=== PATIENT | female | born 1975 | race Caucasian/White ===

== ENCOUNTER 2017-08-26 09:49 | Inpatient (IN) | payer OTHER ==
--- NOTE | 2017-08-21 17:28 | PREOPHP ---
Date of Admission: 08/22/2017 History Of Present Illness: Ms. Alcaraz is a 42-year-old female, 3, para 2-0 -1-2, who has had problems over the last couple of years with some irregular periods. She is status post tubal ligation, diagnostic laparoscopy, and NovaSure endometrial ablation. She has continued to have problems with bleeding that has not been able to be controlled with oral contraceptives or Nuva Ring. Pelvic ultrasound only seems to indicate a small 6 mm leiomyomata, but despite relative normal cy, she has continued to bleed irregularly. Because of this, she will undergo vaginal hysterectomy a nd salpingectomy. Past Medical History: Includes 2 prior vaginal deliveries, 1 spontaneous AB, diagnostic laparoscopy, tubal ligation, and NovaSure endometrial ablation. Medications: She is on no medications on current basis other than the iron supplements and levothyro xine. Allergies: SHE HAS NO KNOWN ALLERGIES OTHER THAN TO SULFA MEDICATIONS. Social History: She does not smoke. Family History: Significant for father with diabetes. Mother with heart disease. Mother with breas t cancer at age 61. Review of Systems: She reports no recent cough, cold, fever, or chills. No recent nausea, vomiting. She denies any natalya ast lumps. She denies any bowel or bladder issues. Physical Examination: General: Reveals a pleasant female, in no apparent distress. Neck: Supple without adenopathy or thyromegaly. Lungs: Clear. Cardiac: Regular rate and rhythm without murmurs. Breasts: Not examined today. Abdomen: Nontender without organosplenomegaly. Pelvic: Normal female external genitalia. Vaginal wall is pink and rugated. Cervix multiparous. B imanual, no abnormalities. Extremities: No cyanosis, clubbing, edema. Plan: The patient will undergo vaginal hysterectomy and salpingectomy. Risks and benefits are discu ssed. She has signed operative permit in my presence. AJ/SANTA Voice ID: [id number]
[2017-08-22 09:34] LABS: Absolute Lymphocytes (CBC) 1.6 K/uL (0.7-4.9); Absolute Monocytes 0.4 K/uL (0.1-1.3); Absolute Neutrophil 2.9 K/uL (1.8-8.0); Basophils % 0.7 % (0-1.3); Eosinophils % 2.6 % (0-4.4); Lymphocytes % 30.9 % (15.3-44.8); MCH 30.6 pg (27.0-35.0); MCV 89.7 fL (80-100); MPV 7.9 fL (7.6-11.3); Monocytes % 7.8 % (3.3-12.3); RBC Red Blood Cell Count 4.68 M/uL (3.86-4.86)
[2017-08-22 10:13] LABS: Urine Appearance CLEAR; Urine Bilirubin NEGATIVE (NEG); Urine Blood NEGATIVE (NEG); Urine Color YELLOW; Urine Glucose NEGATIVE (NEG); Urine Protein NEGATIVE (NEG); Urine Specific Gravity <=1.005 (1.005-1.030); Urine Urobilinogen 0.2 mg/dL (0.2-1.0)
[2017-08-22 10:16] LABS: Urine Microscopic Reflex NO UMIC
[2017-08-26] MEDS ORDERED: Ringers Lactate 1,000 ML IV ONE (10:10)
[2017-08-26] MEDS ORDERED: MIDAZOLAM HCL 2 MG/2 ML INJ ONE (10:28)
[2017-08-26] MEDS ORDERED: ROCURONIUM 50 MG/5 ML VIAL IV ONE (10:28)
[2017-08-26] MEDS ORDERED: PROPOFOL 200 MG/20 ML VIAL IV ONE (10:28)
[2017-08-26] MEDS ORDERED: FENTANYL CITR 250 MCG/5 ML ONE (10:29)
[2017-08-26] MEDS: CEFAZOLIN/SWI 2gm 2 GM/20 ML SYR IV SCH ×2 (10:40→11:14)
[2017-08-26] MEDS ORDERED: ONDANSETRON 4 MG/2 ML VIAL ONE ×2 (10:45→12:48)
[2017-08-26] MEDS ORDERED: LIDOCAINE 2% INJ, MPF 2 ML 2 ML ONE (10:46)
[2017-08-26] MEDS ORDERED: SULFANILAMIDE 15% VAG CREAM VAG ONE (10:53)
[2017-08-26] MEDS ORDERED: LIDOCAINE 1% W/EPI 1:100,000 MDV 50 ML VIAL ONE (11:39)
[2017-08-26] MEDS: Ringers Lactate 1,000 ML IV ONE ×2 (12:00→12:15)
[2017-08-26] MEDS ORDERED: KETOROLAC 30 MG/ML INJ ONE ×2 (12:31→14:43)
[2017-08-26] MEDS ORDERED: GLYCOPYRROLATE 0.2 MG/ML SYR ONE (12:33)
[2017-08-26] MEDS ORDERED: NEOSTIGMINE 1 MG/ML -5 ML SYRINGE ONE (12:34)
--- NOTE | 2017-08-26 12:42 | P.BOP ---
Preoperative diagnosis: Menorrhagia, lieomyomata Postoperative diagnosis: same Primary procedure: Vaginal hysterectomy, right salpingectomy Regulator Mechanic: Chandler Gamboa Specimen: uterus, right tube Anesthesia: General Complications: None Drain(s): Urinary catheter Transferred to: Recovery Room Condition: Good
[2017-08-26] MEDS ORDERED: MORPHINE/NS PCA 50 MG/50 ML PCA.SYRING IV PRN (12:43)
[2017-08-26] MEDS ORDERED: NALOXONE 0.4 MG/ML VIAL IV PRN (12:43)
[2017-08-26] MEDS ORDERED: PROMETHAZINE 25 MG/ML VIAL IV PRN (12:45)
[2017-08-26] MEDS ORDERED: FENTANYL CITR 100 MCG/2 ML ONE (12:46)
[2017-08-26] MEDS ORDERED: MEPERIDINE HCL 50 MG/ML AMP ONE ×2 (12:48→14:28)
[2017-08-26] MEDS ORDERED: PROMETHAZINE 25 MG/ML VIAL ONE (12:48)
[2017-08-26] MEDS ORDERED: PROMETHAZINE 25 MG/ML VIAL IV ONE (12:50)
[2017-08-26] MEDS ORDERED: ONDANSETRON 4 MG/2 ML VIAL IV ONE (12:50)
[2017-08-26] MEDS ORDERED: MEPERIDINE HCL 50 MG/ML AMP IV ONE ×2 (12:51→13:10)
[2017-08-26] MEDS ORDERED: Ringers Lactate 1,000 ML IV SCH (13:00)
[2017-08-26 13:34] VITALS: O2SAT 100
[2017-08-26 14:16] VITALS: BMI 25.6
[2017-08-26] MEDS: KETOROLAC 30 MG/ML INJ IV PRN (14:45)
[2017-08-26] MEDS ORDERED: Oxycodone HCl/Acetaminophen 1 TAB TAB ONE (16:09)
[2017-08-26] MEDS: Oxycodone HCl/Acetaminophen 1 TAB TAB PO PRN ×2 (16:14→20:40)
--- NOTE | 2017-08-26 23:09 | OP ---
Surgeon: Rusty Thomas MD Anesthesiologist: Jose Juan Nguyen CRNA and Dr. Bales. Preoperative Diagnoses: 1. Menorrhagia. 2. Leiomyomata. Procedures: Vaginal hysterectomy, right salpingectomy. Postoperative Diagnoses: 1. Menorrhagia. 2. Leiomyomata. Description Of Procedure: After a satisfactory level of general endotracheal anesthesia was obtained, the patient was prepped and draped in usual fashion in high leg holders for vaginal surgery. The cervix was grasped with single-tooth tenaculum. Then [facility] clamp was injected circumferentially with dilute solution of lidocaine with 1% epinephrine. A circumferential incision was made utilizing blunt dissection. The bladder was dissected away from the anterior peritoneal reflection, which was entered and certain that we were in the peritoneum rather than the bladder. The posterior colpotomy performed. A duckbill speculum was placed. The uterosacral ligaments were clamped, cut, and suture ligated with 0 Vicryl suture as were the cardinal ligaments and the remainder of the lateral supporting tissue and vascular tissue of the uterus. Lala clamps were placed over the utero-ovarian ligaments and vessels, clamped , cut, and doubly suture ligated with a fix suture and a free tie of 0 Vicryl suture. Good hemostasis was noted. The right tube was removed and base suture ligated with 0 Vicryl suture. Because of some difficulty with the right tube, left tube was left in place. Small right hydatid cyst of Morgagni was devitalized with bipolar cautery. The ovarian pedicles were dry. The stay sutures were released. The cuff was closed with pursestring suture of 2-0 Vicryl in the peritoneum. Free needle was used with a suture from the uterosacral and the cardinal ligaments at the lateral margin of the cuff. The cuff was closed with inverted [id number] sutures of 0 Vicryl ensuring incorporation of the posterior vaginal cuff to stop bleeding. Good hemostasis was noted. A Joe catheter was placed and the patient was awakened, extubated , taken to recovery room in satisfactory condition. Technology Applications Engineer Surgeon: Dr. Gamboa. Estimated Blood Loss: Less than 100 cc. She received 2 g of Ancef for antibiotic prophylaxis. AJ/SANTA Voice ID: [id number] Report ID: [id number] [facility]ITAL[facility]
[2017-08-27] MEDS: KETOROLAC 30 MG/ML INJ IV PRN (01:55)
[2017-08-27] MEDS ORDERED: LEVOTHYROXINE SOD 0.125 MG TAB PO SCH (06:00)
[2017-08-27] MEDS: Oxycodone HCl/Acetaminophen 1 TAB TAB PO PRN ×2 (08:45→12:02)
[2017-08-27 11:50] VITALS: BP 116/73; TEMP 96.6
--- NOTE | 2017-08-28 07:08 | DS ---
Date of Discharge: 08/27/2017 Final Hospital Discharge Diagnoses: Menorrhagia, uterine leiomyomata Complications: None. Procedures: Vaginal hysterectomy, right salpingectomy. Hospital Course: The patient is a 42-year-old female, who underwent a vaginal hyst erectomy, right salpingectomy for menorrhagia with uterine leiomyomata. She was dismissed on the postoperative day to be seen back in my office in 2 weeks with the usual postvaginal hysterectomy activity restrictions. Lab work obtained, included an admission hemoglobin and hematocrit of 14.3, 4 2.0. A negative urine test on urinalysis. She was dismissed with prescription for Tylenol No. 3 #15 for pain relief with the usual postoperative instructions. AJ/SANTA Voice ID: [id number] Report ID: [id number]
== END 2017-08-27 12:35 | disposition home or self-care (01) | DRG 743 ==
LOC: OR 09:49 → 2ND-WC 13:45
PROVIDERS: ADMIT Specialist; ATTEND Specialist
PROC: 0UT57ZZ Resection of Right Fallopian Tube, Via Natural or Artificial Opening (ICD-10-PCS; 2017-08-26)
PROC: 0UT97ZZ Resection of Uterus, Via Natural or Artificial Opening (ICD-10-PCS; principal; 2017-08-26 11:00)
DX: N92.0 Excessive and frequent menstruation with regular cycle (principal); D25.9 Leiomyoma of uterus, unspecified
CPT/HCPCS: 36415; 81003; 81025; 85025; 86850; 86900; 86901; 88307; J0690; J2175; J2250; J2405; J2550; J2710; J3010; J3490

== ENCOUNTER 2017-11-25 09:07 | Observation (INO) | payer OTHER ==
--- OUTSIDE RECORDS SUMMARY | 2017-11-25 09:24 | XMS REPORT ---
:1975 Author Organization [employer] Care Team Providers Name Role Phone Chalo Javier Provider Role Unavailable Allergies, Adverse Reactions, Alerts Substance Reaction Event Type Sulfa Info Not Available Drug Allergy Problems Problem Type Condition Code Onset Dates Condition Status Assessment Pain, joint, knee, right M25.561 Active Problem Acute pain of right knee M25.561 Active Assessment Trochanteric bursitis of right hip M70.61 Active Assessment Sprain of other ligament of right S83.8X1A Active knee, initial encounter Assessment Iliotibial band syndrome of right M76.31 Active side Medications Medication Code Code Instructions Start End Status Dosage System Date Date Medrol [facility] 77094216014 4 MG Orally as October 19, Active as directed 2017 directed Ibuprofen ND 0 Active not defined Naprosyn ND 00802899841 500 MG Orally October 19September Active 1 tablet every 12 hrs 2017 29, with food 2018 or milk as needed Levothyroxine [facility] [address]-81 Active not Sodium defined Results No Known Results Summary Purpose eClinicalWorks Submission
[2017-11-25] MEDS ORDERED: NA CHLORIDE 0.9% 1,000 ML ONE (09:33)
[2017-11-25] MEDS ORDERED: ONDANSETRON 4 MG/2 ML VIAL ONE ×4 (09:34→17:06)
[2017-11-25 10:04] LABS: Urine Blood TRACE (NEG); Urine Glucose NEGATIVE (NEG); Urine Protein NEGATIVE (NEG); Urine Specific Gravity 1.015 (1.005-1.030)
[2017-11-25 10:13] LABS: Urine Bacteria NONE SEEN /HPF (<20); Urine Culture Reflex Order NOT NEEDED; Urine RBC <5 /HPF (NONE SEEN)
[2017-11-25 10:17] LABS: Absolute Lymphocytes (CBC) 1.2 K/uL (0.7-4.9); Absolute Monocytes 0.4 K/uL (0.1-1.3); Absolute Neutrophil 4.5 K/uL (1.8-8.0); Basophils % 0.6 % (0-1.3); Eosinophils % 0.9 % (0-4.4); Lymphocytes % 19.5 % (15.3-44.8); MCH 30.9 pg (27.0-35.0); MCV 89.7 fL (80-100); MPV 7.8 fL (7.6-11.3); Monocytes % 5.8 % (3.3-12.3); RBC Red Blood Cell Count 4.69 M/uL (3.86-4.86)
[2017-11-25 10:19] LABS: ALT/SGPT 18 U/L (12-78); AST/SGOT 14 U/L (15-37); Alkaline Phosphatase 56 U/L (45-117); BUN Blood Urea Nitrogen 14 mg/dL (7-18); Bicarbonate 28 mmol/L (21-32); Bilirubin Direct 0.1 mg/dL (0-0.2); Bilirubin Total 0.4 mg/dL (0.2-1.0); Glucose Level 103 mg/dL (74-106); Lipase 58 U/L (73-393); Potassium 3.6 mmol/L (3.5-5.1); Protein, Total 7.5 g/dL (6.4-8.2); Sodium Level 139 mmol/L (136-145)
--- NOTE | 2017-11-25 11:04 | RAD REPORT ---
EXAM DESCRIPTION: CTAbdomen Pelvis W Contrast - 11/25/2017 10:55 am CLINICAL HISTORY: Abdominal pain. ABD PAIN COMPARISON: Follow Up Breast Axilla Comp dated 11/24/2017 TECHNIQUE: Biphasic CT imaging of the abdomen and pelvis was performed with 100 ml non-ionic IV cont rast. All CT scans are performed using dose optimization technique as appropriate and may include automated exposure control or mA/KV adjustment according to patient size. FINDINGS: The lung bases are clear.Small amount of focal fat stranding in the omental fat is seen me asuring 3 cm in the right upper quadrant, nonspecific. The liver contains a cyst in right lobe measuring 14 mm. No aggressive liver lesion or biliary dilata tion. The spleen, pancreas, adrenal glands and kidneys are within normal limits. No bowel obstruction, free air, free fluid or abscess. Moderate fecal retention in the colon. The jarrett endix is normal. Small fat containing umbilical hernia. No evidence of significant lymphadenopathy. No suspicious bony findings. IMPRESSION: Small 3 cm area of focal fat stranding in the right upper quadrant omental fat noted as detailed. Etiology for this finding is not clear, possibly representing small area of omental infarct .
--- NOTE | 2017-11-25 11:21 | RAD REPORT ---
EXAM DESCRIPTION: US - Abdomen Exam Limited - 11/25/2017 10:58 am CLINICAL HISTORY: RUQ pain COMPARISON: Abdomen Exam Complete dated 11/21/2016 FINDINGS: The gallbladder demonstrates no gallstones. No pericholecystic fluid or gallbladder wall t hickening. The common bile duct is normal measuring 4 mm. The liver demonstrates no findings of intrahepatic biliary dilatation. IMPRESSION: Unremarkable examination.
--- NOTE | 2017-11-25 13:56 | EDPHYS ---
Physician Documentation [facility] Name: Tracy Alcaraz Age: 42 yrs Sex: Female : 1975 Arrival Date: 11/25/2017 Time: 09:09 Bed 20 Private MD: Otto Murrell ED Physician Fidel Arzola HPI: 11/25 18:24 This 42 yrs old Female presents to ER via Ambulatory with complaints of kdr Abdominal Pain, Abdominal Swelling. 18:24 The patient presents with abdominal pain in the right upper quadrant, right lower kdr quadrant, Feels generally bloated since yesterday abdominal distention that is diffuse. Onset: The symptoms/episode began/occurred yesterday. The symptoms do not radiate. Associated signs and symptoms: Pertinent positives: nausea, Pertinent negatives: anorexia, blood in stools, chest pain, constipation, diarrhea, dysuria, fever, headache, hematuria, palpitations, shortness of breath, vaginal discharge, vomiting, vomiting blood. The symptoms are described as achy, constant, crampy, intermittent, vague. Modifying factors: The symptoms are alleviated by remaining still, the symptoms are aggravated by breathing deeply, movement, touching the area, walking. Severity of pain: At its worst the pain was moderate in the emergency department the pain is actually worse mildly. The patient has not experienced similar symptoms in the past. The patient has not recently seen a physician. 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 - Social history:: Smoking status: Patient/guardian denies using tobacco. - Ebola Screening: : Patient negative for fever greater than or equal to 101.5 degrees Fahrenheit, and additional compatible Ebola Virus Disease symptoms Patient denies exposure to infectious person Patient denies travel to an Ebola-affected area in the 21 days before illness onset No symptoms or risks identified at this time. ROS: 18:24 Constitutional: Negative for fever, chills, and weight loss, Eyes: Negative for injury, kdr pain, redness, and discharge, ENT: Negative for injury, pain, and discharge, Neck: Negative for injury, pain, and swelling, Cardiovascular: Negative for chest pain, palpitations, and edema, Respiratory: Negative for shortness of breath, cough, wheezing, and pleuritic chest pain, Back: Negative for injury and pain, : Negative for injury, bleeding, discharge, and swelling, MS/Extremity: Negative for injury and deformity, Skin: Negative for injury, rash, and discoloration, Neuro: Negative for headache, weakness, numbness, tingling, and seizure activity. Psych: Negative for depression, anxiety, suicide ideation, homicidal ideation, and hallucinations, Allergy/Immunology: Negative for hives, rash, and allergies, Endocrine: Negative for neck swelling, polydipsia, polyuria, polyphagia, and marked weight changes, Hematologic/Lymphatic: Negative for swollen nodes, abnormal bleeding, and unusual bruising. 18:24 Abdomen/GI: Positive for abdominal pain, nausea, Negative for diarrhea, constipation, abdominal cramps, abdominal distension, anorexia, dysphagia, hematemesis, black/tarry stool, rectal pain, rectal bleeding. Exam: 18:24 Constitutional: This is a well developed, well nourished patient who is awake, alert, kdr and in no acute distress. Head/Face: Normocephalic, atraumatic. Eyes: Pupils equal round and reactive to light, extra-ocular motions intact. Lids and lashes normal. Conjunctiva and sclera are non-icteric and not injected. Cornea within normal limits. Periorbital areas with no swelling, redness, or edema. Neck: Trachea midline, no thyromegaly or masses palpated, and no cervical lymphadenopathy. Supple, full range of motion without nuchal rigidity, or vertebral point tenderness. No Meningismus. Chest/axilla: Normal chest wall appearance and motion. Nontender with no deformity. No lesions are appreciated. Cardiovascular: Regular rate and rhythm with a normal S1 and S2. No gallops, murmurs, or rubs. Normal PMI, no JVD. No pulse deficits. Respiratory: Lungs have equal breath sounds bilaterally, clear to auscultation and percussion. No rales, rhonchi or wheezes noted. No increased work of breathing, no retractions or nasal flaring. Back: No spinal tenderness. No costovertebral tenderness. Full range of motion. Skin: Warm, dry with normal turgor. Normal color with no rashes, no lesions, and no evidence of cellulitis. MS/ Extremity: Pulses equal, no cyanosis. Neurovascular intact. Full, normal range of motion. Neuro: Awake and alert, GCS 15, oriented to person, place, time, and situation. Cranial nerves II-XII grossly intact. Motor strength 5/5 in all extremities. Sensory grossly intact. Cerebellar exam normal. Normal gait. Psych: Awake, alert, with orientation to person, place and time. Behavior, mood, and affect are within normal limits. 18:24 Abdomen/GI: Inspection: abdomen appears normal, Bowel sounds: active, all quadrants, Palpation: soft, mild abdominal tenderness, in the right upper quadrant, rebound tenderness, is not appreciated. Vital Signs: 09:19 BP 153 / 93; Pulse 115; Resp 16 S; Pulse Ox 100% on R/A; Weight 61.23 kg; Height 5 ft. iw 2 in. (157.48 cm); Pain 7/10; 10:22 BP 112 / 67; Pulse 88; Resp 14 S; Pulse Ox 100% on R/A; jl7 10:26 Temp 98.5(O); jl7 11:28 BP 124 / 72; Pulse 87; Resp 16 S; Pulse Ox 100% on R/A; jl7 12:34 BP 117 / 77; Pulse 87; Resp 16; Pulse Ox 98% ; jl7 14:12 BP 128 / 75; Pulse 83; Resp 15; Pulse Ox 98% on R/A; mh5 16:44 BP 117 / 77; Pulse 90; Resp 16 S; Pulse Ox 100% on R/A; jl7 09:19 Body Mass Index 24.69 (61.23 kg, 157.48 cm) iw MDM: 13:55 Patient medically screened. kdr 18:24 Data reviewed: vital signs, nurses notes, lab test result(s), radiologic studies. kdr Counseling: I had a detailed discussion with the patient and/or guardian regarding: the historical points, exam findings, and any diagnostic results supporting the discharge/admit diagnosis, lab results, radiology results, the need for further work-up and treatment in the hospital. Physician consultation: Graeme Waller MD. Admission orders: after a detailed discussion of the patient's condition and case, the admit orders are written by me. 08/28 09:23 Order name: Basic Metabolic Panel; Complete Time: 10:41 kdr 11/25 09:23 Order name: CBC with Diff; Complete Time: 10:41 kdr 11/25 09:23 Order name: Creatinine for Radiology; Complete Time: 10:41 kdr 11/25 09:23 Order name: Hepatic Function; Complete Time: 10:41 kdr 11/25 09:23 Order name: Lipase; Complete Time: 10:41 kdr 11/25 09:23 Order name: Urine Microscopic Only; Complete Time: 10:41 kdr 11/25 09:51 Order name: Urine Dipstick--Ancillary (enter results); Complete Time: 10:41 bd 11/25 14:02 Order name: Basic Metabolic Panel EDMS 11/25 14:02 Order name: Basic Metabolic Panel EDMS 11/25 14:02 Order name: CBC with Automated Diff EDMS 11/25 14:02 Order name: CBC with Automated Diff EDMS 11/25 14:02 Order name: Lipase EDMS 11/25 14:02 Order name: Lipase EDMS 11/25 14:02 Order name: Liver (Hepatic) Function EDMS 11/25 09:23 Order name: IV Saline Lock; Complete Time: 09:52 kdr 11/25 09:23 Order name: Labs collected and sent; Complete Time: 09:52 kdr 11/25 09:23 Order name: Urine Dipstick-Ancillary (obtain specimen); Complete Time: 09:52 kdr 11/25 09:23 Order name: CT Abd/Pelvis - W/Contrast; Complete Time: 11:13 kdr 11/25 10:43 Order name: US Abdomen Limited; Complete Time: 11:27 kdr 11/25 14:02 Order name: NPO EDMS 11/25 14:02 Order name: Liver (Hepatic) Function EDMS Administered Medications: 09:46 Drug: NS 0.9% 1000 ml Route: IV; Rate: 1 bolus; Site: right antecubital; jl7 10:27 Follow up: IV Status: Completed infusion jl7 09:48 Drug: Zofran 4 mg Route: IVP; Site: right antecubital; jl7 10:15 Follow up: Response: No adverse reaction; Nausea is decreased jl7 11:28 Drug: Zofran 4 mg Route: IVP; Site: right antecubital; jl7 12:00 Follow up: Response: No adverse reaction; Nausea is decreased jl7 14:30 Drug: morphine 2 mg Route: IVP; Site: right antecubital; jl7 15:00 Follow up: Response: No adverse reaction; Pain is decreased jl7 14:35 Drug: Zosyn 3.375 grams Route: IVPB; Infused Over: 60 mins; Site: right antecubital; jl7 15:35 Follow up: Response: No adverse reaction; IV Status: Completed infusion jl7 15:07 Drug: Flagyl 500 mg Volume: 100 ml; Route: IVPB; Rate: 200 ml/hr; Infused Over: 30 jl7 mins; Site: right antecubital; 15:37 Follow up: Response: No adverse reaction; IV Status: Completed infusion jl7 Disposition: 11/25/17 13:55 Hospitalization ordered by Graeme Waller for Observation. Preliminary diagnosis are Abdominal and pelvic pain, Omental Infart. - Bed requested for Telemetry/MedSurg (observation). - Status is Observation. jl7 - Condition is Fair. - Problem is new. - Symptoms have improved. UTI on Admission? No Signatures: Dispatcher [employer] EDMS Fidel Arzola MD MD kdr Estela Bergman RN RN iw Ingrid Lombardi RN RN jl7 Jodie Winter RN RN df Corrections: (The following items were deleted from the chart) 17:24 13:55 Hospitalization Ordered by Graeme Waller MD for Observation. Preliminary df diagnosis is Abdominal and pelvic pain; Omental Infart. Bed requested for Telemetry/MedSurg (observation). Status is Observation. Condition is Fair. Problem is new. Symptoms have improved. UTI on Admission? No. kdr 18:01 17:24 11/25/2017 13:55 Hospitalization Ordered by Graeme Waller MD for Observation. jl7 Preliminary diagnosis is Abdominal and pelvic pain; Omental Infart. Bed requested for Telemetry/MedSurg (observation). Status is Observation. Condition is Fair. Problem is new. Symptoms have improved. UTI on Admission? No. df
--- NOTE | 2017-11-25 13:56 | ER ---
Nurse's Notes [facility] Name: Tracy Alcaraz Age: 42 yrs Sex: Female : 1975 Arrival Date: 11/25/2017 Time: 09:09 Bed 20 Private MD: Otto Murrell Diagnosis: Abdominal and pelvic pain;Omental Infart Presentation: 11/25 09:17 Presenting complaint: Patient states: RUQ pain radiating to RLQ and bloating, started iw yesterday, worse when taking a deep breath, denies vomiting or diarrhea but does feel very nauseous, pain is constant /10. Transition of care: patient was not received from another setting of care. Onset of symptoms was November 24, 2017. Risk Assessment: Do you want to hurt yourself or someone else? Patient reports no desire to harm self or others. Initial Sepsis Screen: Does the patient meet any 2 criteria? No. Patient's initial sepsis screen is negative. Does the patient have a suspected source of infection? No. Patient's initial sepsis screen is negative. Care prior to arrival: None. 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 - Social history:: Smoking status: Patient/guardian denies using tobacco. - Ebola Screening: : Patient negative for fever greater than or equal to 101.5 degrees Fahrenheit, and additional compatible Ebola Virus Disease symptoms Patient denies exposure to infectious person Patient denies travel to an Ebola-affected area in the 21 days before illness onset No symptoms or risks identified at this time. Screenin:24 Abuse screen: Denies threats or abuse. Denies injuries from another. Nutritional jl7 screening: No deficits noted. Tuberculosis screening: No symptoms or risk factors identified. Fall Risk IV access (20 points). Total Wake[place] Fall Scale indicates No Risk (0-24 pts). Assessment: 09:30 General: Appears in no apparent distress. uncomfortable, Behavior is calm, cooperative, jl7 appropriate for age. Pain: Complains of pain in right upper quadrant Pain currently is 7 out of 10 on a pain scale. Neuro: Level of Consciousness is awake, alert, obeys commands, Oriented to person, place, time, situation. Cardiovascular: Patient's skin is warm and dry. Respiratory: Airway is patent Respiratory effort is even, unlabored, Respiratory pattern is regular, symmetrical. GI: Abdomen is non-distended, Stools are reported to be normal. Last BM was November 25, 2017. Bowel sounds present X 4 quads. Abd is soft Abdomen is tender to palpation in right upper quadrant Reports nausea, Patient currently denies diarrhea, vomiting. : No signs and/or symptoms were reported regarding the genitourinary system. Denies burning with urination, inability to void, urinary frequency. EENT: No signs and/or symptoms were reported regarding the EENT system. Derm: Skin is pink, warm \T\ dry. Musculoskeletal: No signs and/or symptoms reported regarding the musculoskeletal system. 10:25 Reassessment: Patient appears in no apparent distress at this time. Patient and/or jl7 family updated on plan of care and expected duration. Pain level reassessed. Patient is alert, oriented x 3, equal unlabored respirations, skin warm/dry/pink. 11:28 Reassessment: Patient and/or family updated on plan of care and expected duration. Pain jl7 level reassessed. Patient is alert, oriented x 3, equal unlabored respirations, skin warm/dry/pink. 12:39 Reassessment: Patient appears in no apparent distress at this time. Patient and/or jl7 family updated on plan of care and expected duration. Pain level reassessed. Patient is alert, oriented x 3, equal unlabored respirations, skin warm/dry/pink. 13:30 Reassessment: Patient and/or family updated on plan of care and expected duration. Pain jl7 level reassessed. Patient is alert, oriented x 3, equal unlabored respirations, skin warm/dry/pink. 14:30 Reassessment: Patient and/or family updated on plan of care and expected duration. Pain jl7 level reassessed. Patient is alert, oriented x 3, equal unlabored respirations, skin warm/dry/pink. 15:30 Reassessment: No changes from previously documented assessment. Patient and/or family jl7 updated on plan of care and expected duration. Pain level reassessed. Patient is alert, oriented x 3, equal unlabored respirations, skin warm/dry/pink. 16:30 Reassessment: Patient and/or family updated on plan of care and expected duration. Pain jl7 level reassessed. Patient is alert, oriented x 3, equal unlabored respirations, skin warm/dry/pink. Vital Signs: 09:19 BP 153 / 93; Pulse 115; Resp 16 S; Pulse Ox 100% on R/A; Weight 61.23 kg; Height 5 ft. iw 2 in. (157.48 cm); Pain 7/10; 10:22 BP 112 / 67; Pulse 88; Resp 14 S; Pulse Ox 100% on R/A; jl7 10:26 Temp 98.5(O); jl7 11:28 BP 124 / 72; Pulse 87; Resp 16 S; Pulse Ox 100% on R/A; jl7 12:34 BP 117 / 77; Pulse 87; Resp 16; Pulse Ox 98% ; jl7 14:12 BP 128 / 75; Pulse 83; Resp 15; Pulse Ox 98% on R/A; mh5 16:44 BP 117 / 77; Pulse 90; Resp 16 S; Pulse Ox 100% on R/A; jl7 09:19 Body Mass Index 24.69 (61.23 kg, 157.48 cm) iw ED Course: 09:09 Patient arrived in ED. rg4 09:09 Otto Murrell MD is Private Physician. rg4 09:19 Triage completed. iw 09:19 Arm band placed on. iw 09:23 Fidel Arzola MD is Attending Physician. kdr 09:24 Ingrid Lombardi RN is Primary Nurse. jl7 09:53 Initial lab(s) drawn, by ks, sent to lab. Urine collected: clean catch specimen, clear. jl7 Inserted saline lock: 20 gauge in right antecubital area, using aseptic technique. Blood collected. 10:24 Patient has correct armband on for positive identification. Bed in low position. Call jl7 light in reach. Side rails up X 1. Pulse ox on. NIBP on. Warm blanket given. 10:54 CT completed. Patient tolerated procedure well. Patient moved to CT via wheelchair. jg6 Patient taken to ultrasound. via wheelchair. 10:55 CT Abd/Pelvis - W/Contrast In Process Unspecified. EDMS 10:56 US Abdomen Limited In Process Unspecified. EDMS 13:53 Graeme Waller MD is Hospitalizing Provider. kdr 17:56 No provider procedures requiring assistance completed. Patient admitted, IV remains in jl7 place. intact, No redness/swelling at site. Administered Medications: 09:46 Drug: NS 0.9% 1000 ml Route: IV; Rate: 1 bolus; Site: right antecubital; jl7 10:27 Follow up: IV Status: Completed infusion jl7 09:48 Drug: Zofran 4 mg Route: IVP; Site: right antecubital; jl7 10:15 Follow up: Response: No adverse reaction; Nausea is decreased jl7 11:28 Drug: Zofran 4 mg Route: IVP; Site: right antecubital; jl7 12:00 Follow up: Response: No adverse reaction; Nausea is decreased jl7 14:30 Drug: morphine 2 mg Route: IVP; Site: right antecubital; jl7 15:00 Follow up: Response: No adverse reaction; Pain is decreased jl7 14:35 Drug: Zosyn 3.375 grams Route: IVPB; Infused Over: 60 mins; Site: right antecubital; jl7 15:35 Follow up: Response: No adverse reaction; IV Status: Completed infusion jl7 15:07 Drug: Flagyl 500 mg Volume: 100 ml; Route: IVPB; Rate: 200 ml/hr; Infused Over: 30 jl7 mins; Site: right antecubital; 15:37 Follow up: Response: No adverse reaction; IV Status: Completed infusion jl7 Outcome: 13:55 Decision to Hospitalize by Provider. kdr 17:56 Admitted to Med/surg accompanied by tech, via wheelchair, room 207, with chart, Report jl7 called to ERLIN Burdick 17:56 Condition: stable 17:56 Discharge instructions given to patient, Instructed on the need for admit, Demonstrated understanding of instructions. 18:01 Patient left the ED. jl7 Signatures: Dispatcher [employer] EDMS Fidel Arzola MD MD kdr Williams, Irene, RN RN iw Garcia, Rubi 4 [facility] Ingrid Lombardi RN RN jl7 Eulalia Claire jg6
[2017-11-25] MEDS ORDERED: ACETAMINOPHEN 500 MG TAB PO PRN (13:58)
[2017-11-25] MEDS ORDERED: MORPHINE 4 MG/ML SYR ONE (14:11)
[2017-11-25] MEDS ORDERED: PIPER/TAZO/NS 3.375gm 3.375 GM/100 ML BAG ONE (14:12)
[2017-11-25] MEDS ORDERED: D5 0.45 NS 1,000 ML IV ONE (17:06)
[2017-11-25] MEDS: ONDANSETRON 4 MG/2 ML VIAL IV PRN ×2 (17:06→21:34)
[2017-11-25] MEDS: D5 0.45 NS 1,000 ML IV SCH ×2 (17:07→23:18)
[2017-11-25] MEDS ORDERED: METRONIDAZOLE 500mg IVPB 500 MG/100 ML BAG IV SCH (18:00)
[2017-11-25] MEDS ORDERED: PIPER/TAZO/NS 3.375gm 3.375 GM/100 ML BAG IVPB SCH (18:00)
[2017-11-25 18:46] VITALS: BMI 24.7
[2017-11-25] MEDS: METRONIDAZOLE 500mg IVPB 500 MG/100 ML BAG IV SCH (23:17)
[2017-11-26] MEDS: PIPER/TAZO/NS 3.375gm 3.375 GM/100 ML BAG IVPB SCH ×2 (00:47→10:03)
[2017-11-26 02:24] VITALS: O2SAT 6
[2017-11-26 05:43] LABS: Absolute Lymphocytes (CBC) 1.8 K/uL (0.7-4.9); Absolute Monocytes 0.5 K/uL (0.1-1.3); Absolute Neutrophil 4.6 K/uL (1.8-8.0); Basophils % 0.4 % (0-1.3); Eosinophils % 1.7 % (0-4.4); Hematocrit 42.3 % (36.0-45.0); Lymphocytes % 25.8 % (15.3-44.8); MCH 31.1 pg (27.0-35.0); MCV 91.3 fL (80-100); MPV 7.7 fL (7.6-11.3); Monocytes % 7.6 % (3.3-12.3); RBC Red Blood Cell Count 4.63 M/uL (3.86-4.86)
[2017-11-26 05:51] LABS: Albumin 3.7 g/dL (3.4-5.0); Bilirubin Direct 0.1 mg/dL (0-0.2); Bilirubin Total 0.7 mg/dL (0.2-1.0); Potassium 3.9 mmol/L (3.5-5.1); Protein, Total 7.3 g/dL (6.4-8.2)
[2017-11-26] MEDS: D5 0.45 NS 1,000 ML IV SCH ×2 (06:00→16:42)
[2017-11-26] MEDS: ONDANSETRON 4 MG/2 ML VIAL IV PRN (06:21)
[2017-11-26] MEDS: METRONIDAZOLE 500mg IVPB 500 MG/100 ML BAG IV SCH (06:24)
[2017-11-26] MEDS ORDERED: MORPHINE 2 MG/ML SYR IV PRN (09:40)
[2017-11-26] MEDS: PROMETHAZINE 25 MG/ML VIAL IV PRN ×2 (10:03→16:45)
[2017-11-26] MEDS: HYDROCODONE/APAP 7.5/325 MG TAB PO PRN ×2 (10:30→16:43)
[2017-11-26] MEDS: CEFOXITIN/SWI 1gm 1 GM/10 ML SYR IV SCH ×2 (12:57→17:19)
[2017-11-26 18:43] VITALS: BP 115/72; TEMP 98.9
--- NOTE | 2017-11-26 19:04 | P.DS ---
Admission Date: 11/25/17 Discharge Date: 11/26/17 Disposition: ROUTINE DISCHARGE Discharge Condition: GOOD Vital Signs/Physical Exam: Temp Pulse Resp BP Pulse Ox 98.9 F 100 H 16 115/72 99 11/26/17 16:00 11/26/17 16:00 11/26/17 16:00 11/26/17 16:00 11/26/17 16:00 General: Alert, In no apparent distress, Oriented x3 HEENT: PERRLA, EOMI Neck: Supple Respiratory: Normal air movement Cardiovascular: No edema Gastrointestinal: Soft and benign, No rebound, No guarding, Tenderness (mild epigastric better than yesterday) Laboratory Data at Discharge: WBC 7.1 K/uL (4.3-10.9) D 11/26/17 04:58 Hgb 14.4 g/dL (12.0-15.0) 11/26/17 04:58 Hct 42.3 % (36.0-45.0) 11/26/17 04:58 Plt Count 254 K/uL (152-406) 11/26/17 04:58 Sodium 141 mmol/L (136-145) 11/26/17 04:58 Potassium 3.9 mmol/L (3.5-5.1) 11/26/17 04:58 BUN 8 mg/dL (7-18) 11/26/17 04:58 Creatinine 0.90 mg/dL (0.55-1.3) 11/26/17 04:58 Glucose 114 mg/dL (74-106) H 11/26/17 04:58 Total Bilirubin 0.7 mg/dL (0.2-1.0) 11/26/17 04:58 AST 14 U/L (15-37) L 11/26/17 04:58 ALT 16 U/L (12-78) 11/26/17 04:58 Alkaline Phosphatase 60 U/L (45-117) 11/26/17 04:58 Lipase 51 U/L (73-393) L 11/26/17 04:58 Home Medications: Levothyroxine [Synthroid*] 125 mcg PO [id number] 02/28/16 Ciprofloxacin HCl [Cipro 500 MG Tablet] 500 mg PO BID #12 tab 11/26/17 Codeine/APAP [Tylenol W/Codeine #3 tab] 1 tab PO Q6HP PRN #20 tab 11/26/17 Pantoprazole [Protonix Tab] 40 mg PO DAILY #7 tab 11/26/17 New Medications: Ciprofloxacin HCl [Cipro 500 MG Tablet] 500 mg PO BID #12 tab Codeine/APAP [Tylenol W/Codeine #3 tab] 1 tab PO Q6HP PRN #20 tab PRN Reason: Pain Pantoprazole [Protonix Tab] 40 mg PO DAILY #7 tab Diet: AHA Activity: Ad arash Followup: Graeme Waller MD [ACTIVE - CAN ADMIT] - 1 Week
--- NOTE | 2017-11-27 05:16 | HP ---
Date of Admission: 11/25/2017 Reason For Service: Epigastric pain. History Of Present Illness: This is the case of a 42-year-old patient, comes to us with epigastric p ain. Came to the ER. Started a day before. Does not radiate anywhere other than epigastric area. Etiology of that is unknown. She does not recall any trauma, any dysuria, hematuria, hematochezia, m lilliam. Denies eating anything out of the usual. Denies any family member sick at home. The patient initially was seen and thinking that may have gallbladder disease, but during the workup, patient fo und to have omental infarction as differential diagnosis. The patient came with intractable abdomina l pain. So she was admitted. Past Surgical History: Include hysterectomy. Medical History: Hypothyroidism. Medications: Levothyroxine. Allergies: SULFA. Social History: She does smoke. She does not drink alcohol. Review of Systems: Constitutional: Denies any fever, chills. Respiratory: Denies any shortness of breath, any chest pain. Gastrointestinal: The patient states nausea, but no vomiting, no dysuria, no melena, no hematochezia . Review of Systems: Ten points review of system otherwise unremarkable. Physical Examination: General: The patient is awake, alert. HEENT: Pupils equal and reactive, anicteric. Neck: Supple. Chest: Clear. Abdomen: Epigastric tenderness with guarding, no rebound. Breasts: Deferred. Pelvic: Deferred. Rectal: Deferred. Extremities: Good capillary refill. Neuro: Cranial nerves 2 through 12 grossly within normal limits. Laboratory Data: Blood work shows WBC count of 6.2 with hemoglobin of 14.5, platelets of 249, neutro phils 73.2. Sodium is 139, creatinine is 0.7, lipase is 58, AST 14, ALT 18, total bilirubin 0.4. UA and nitrite negative. Imaging: CAT scan of the abdomen and pelvis interpreted by Dr. Vasquez as small 3 cm area of focal fat stranding in the right upper quadrant omental fat, possible representing omental infarct. The patien t has a small liver cyst about 14 mm. No aggressive lesions seen in the liver and patient also have umbilical hernia. Abdominal ultrasound interpreted by Dr. Vasquez as unremarkable. Assessment: This is a 42-year-old patient with intractable abdominal pain, omental infarction as the differential diagnosis. The patient will be admitted to observation, serial abdominal examination. The patient understand the options of diagnostic laparoscopy, with benefits, alternatives, and risks including, but not limited to infection, bleeding, damage to adjacent structures, anesthesia complic ations, negative exploration, myocardial infarction, even . She also understands this might not relieve any symptoms. She may need more than 1 surgical intervention. She would prefer conservativ e treatment at this moment. We are going to check once again tomorrow morning see how she is doing a nd we can control her pain and clinically if she improved, she may start some diet and see how she go es on the day. If she get worse, then she will allow me to do diagnostic lap. JORGE Voice ID: [id number]
== END 2017-11-26 18:47 | disposition home or self-care (01) ==
LOC: ER 09:07 → ERHOLD 13:57 → 2ND 17:57
PROVIDERS: ADMIT Surgery; ATTEND Surgery
DX: R10.13 Epigastric pain (principal); E03.9 Hypothyroidism, unspecified; Z88.2 Allergy status to sulfonamides
CPT/HCPCS: 36415; 74177; 76705; 80048; 80076; 81003; 81015; 83690; 85025; 96361; 96365; 96368; 96375; 99285; G0378; J2405; J2543; J2550; J7030; Q9967

== ENCOUNTER 2017-12-10 08:31 | Day surgery (SDC) | payer OTHER ==
--- OUTSIDE RECORDS SUMMARY | 2017-12-10 08:33 | XMS REPORT ---
[...] End Status Dosage System Date Date Medrol [facility] 54381778127 4 MG Orally as October 19, Active as directed 2017 directed Ibuprofen ND 0 Active not defined Naprosyn ND 11136285655 500 MG Orally October 19September Active 1 tablet every 12 hrs 2017 29, with food 2018 or milk as needed Levothyroxine [facility] [address]-34 Active not Sodium defined Results No Known Results Summary Purpose eClinicalWorks Submission
--- NOTE | 2017-12-10 08:47 | RAD REPORT ---
EXAM DESCRIPTION: RAD - Chest Pa And Lat (2 Views) - 12/10/2017 8:24 am CLINICAL HISTORY: preop Chest pain. COMPARISON: Chest Pa And Lat (2 Views) dated 06/30/2016; Chest Pa And Lat (2 Views) dated 03/27/2016; Chest Single View dated 03/01/2016; Chest Single View dated 02/27/2016 FINDINGS: The lungs are clear. The heart is normal in size. No displaced fractures. IMPRESSION: No acute or concerning finding suspected.
[2017-12-10 08:48] LABS: Absolute Lymphocytes (CBC) 1.4 K/uL (0.7-4.9); Absolute Monocytes 0.5 K/uL (0.1-1.3); Absolute Neutrophil 3.9 K/uL (1.8-8.0); Basophils % 0.5 % (0-1.3); Eosinophils % 0.9 % (0-4.4); Lymphocytes % 23.6 % (15.3-44.8); MCH 30.8 pg (27.0-35.0); MPV 8.4 fL (7.6-11.3); Monocytes % 8.2 % (3.3-12.3); RBC Red Blood Cell Count 4.89 M/uL (3.86-4.86)
[2017-12-10] MEDS ORDERED: Ringers Lactate 1,000 ML IV ONE ×2 (08:50→11:59)
[2017-12-10] MEDS ORDERED: CEFAZOLIN/SWI 1gm 1 GM/10 ML SYR ONE (08:50)
[2017-12-10 08:51] LABS: Potassium 4.2 mmol/L (3.5-5.1)
[2017-12-10] MEDS ORDERED: MIDAZOLAM HCL 2 MG/2 ML INJ ONE (09:14)
[2017-12-10] MEDS ORDERED: PROPOFOL 200 MG/20 ML VIAL IV ONE (09:14)
[2017-12-10] MEDS ORDERED: GLYCOPYRROLATE 0.2 MG/ML SYR ONE ×2 (09:14)
[2017-12-10] MEDS ORDERED: FENTANYL CITR 250 MCG/5 ML ONE (09:15)
[2017-12-10] MEDS ORDERED: LIDOCAINE 2% MPF 5 ML VIAL ONE (09:15)
[2017-12-10] MEDS ORDERED: ROCURONIUM 50 MG/5 ML VIAL IV ONE (09:18)
[2017-12-10] MEDS ORDERED: SCOPOLAMINE HYDROBROMIDE PATCH TD ONE (09:23)
[2017-12-10] MEDS ORDERED: BUPIVACAINE 0.5% PF 10 ML VIAL ONE (09:30)
--- NOTE | 2017-12-10 11:02 | P.BOP ---
Preoperative diagnosis: intractable epigastric pain, omental mass (possible infarction, umbilical h Postoperative diagnosis: same, omental inflammarory mass (possible infarction), hernia, appendicitis Primary procedure: 1. Diagnostic laparoscopy, 2. Partial omentectomy, 3. appendectomy Secondary procedure: 4. open repair of incarcerated umbilical hernia Block Sealer: Mai Mcintosh) Estimated blood loss: <10cc Specimen: jarrett, omental mass(possible infarcted omentum), hernia sac Findings: see dictation Anesthesia: General Complications: None Transferred to: Recovery Room Condition: Good
[2017-12-10] MEDS: MEPERIDINE HCL 50 MG/ML AMP ONE ×2 (11:30→11:55)
[2017-12-10] MEDS ORDERED: ONDANSETRON 4 MG/2 ML VIAL ONE (11:50)
[2017-12-10] MEDS ORDERED: Mastisol Adhesive Liq ONE (11:53)
[2017-12-10] MEDS ORDERED: PROMETHAZINE 25 MG/ML VIAL ONE (11:56)
--- NOTE | 2017-12-10 12:09 | EKG ---
Test Date: 2017-12-10 Test Time: 08:28:06 Mining Detail Draftsperson: SMITHA MEASUREMENT RESULTS: Intervals: Rate: 75 TX: 136 QRSD: 78 QT: 364 QTc: 406 [place]: P: 72 TX: 136 QRS: 64 T: 39 INTERPRETIVE STATEMENTS: Normal sinus rhythm Normal ECG Compared to ECG 06/30/2016 20:35:34 No significant changes Electronically Signed On 12-10-17 12:08:25 CDT by Horacio Helton
[2017-12-10] MEDS ORDERED: HYDROCODONE/APAP 5/325 MG TAB ONE (13:19)
[2017-12-10 14:25] VITALS: TEMP 98
[2017-12-10 14:45] VITALS: BP 111/69; O2SAT 100
--- NOTE | 2017-12-18 19:03 | DS ---
Date of Discharge: 12/10/2017 Diagnoses: Intractable epigastric pain, omental mass, possible torsion, umbilical hernia, appendicit is. Procedures: Diagnosed laparoscopy, partial omentectomy, appendectomy, open repair of incarcerated um bilical hernia. Disposition: Home. Activity: As tolerated. No heavy lifting. Followup: Follow up in my office in 1 week. Call for appointment [phone]. Keep the area dry for 4 8 hours, then may shower. Keep Steri-Strips intact. Medications: See orders. JOSEP/SANTA Voice ID: [id number] Report ID: [id number]
--- NOTE | 2017-12-18 19:03 | OP ---
Date of Procedure: 12/10/2017 Surgeon: Graeme Waller MD Diamond Assorter: FRANCISCO Rai. Preoperative Diagnoses: Intractable epigastric pain, omental mass, possible infarction. Umbilical h ernia, incarcerated. Postoperative Diagnoses: Intractable epigastric pain, omental mass, possible infarction. Umbilical hernia, incarcerated, plus omental inflammatory mass with possible infarction. Umbilical hernia. Ap pendicitis. Procedures: 1.Diagnostic laparoscopy. 2.Partial omentectomy. 3.Appendectomy. 4.Open repair of incarcerated umbilical hernia. Estimated Blood Loss: Less than 10 cc. Specimen: Appendix, omental mass which looked like a possible infarcted omentum with necrosis, and a lso a hernia sac. Anesthesia: General plus local. Indications For Procedure: This is a case of a 42-year-old patient, who comes to us with intractable abdominal pain. Also she has pain on the right lower quadrant on and off, which looked like this ti me she has borderline, the epigastric is the worst, she has ever remembered that before. She was adm itted to the hospital, diagnosed with a possible omental infarction. She had a workup done by the GI doctor, including endoscopies. He is trying to figure out the etiology of that if that is infarctio n or if there is any other possible cause of it. The patient did not improve this week. She has bee n miserable with nausea, vomiting. Not able to keep food down. GI doctor, once again, has no other reason for her current symptoms and pain, so we offered a diagnostic laparoscopy, if possible omentec nel, repair of umbilical hernia. She also has midabdominal tenderness on and off and she wants the appendix removed during the same surgery if possible. Fully explained the benefits, alternatives, an d risks of above procedure, which include but are not limited to infection, bleeding, damage to adjac ent structures as complication, DC, even . She also understands this may not relieve any sympto ms. She might need more than one surgical intervention. Concerning the area of the appendix, if we see the appendix to be normal, we are going to have to leave it there. If we see some asymmetrical i n shape and color, that suspect appendicitis, then we will go ahead and do appendectomy with the same risks already mentioned above. She understood and signed a consent. Description Of Procedure: The patient was brought to the operating room, placed in supine position. Anesthesia was done without complication. Abdominal area was prepped and draped in a sterile fashio n. Marcaine 0.5% injected for local anesthetic, followed by sharp incision of the skin in the infrau mbilical region. Incision was carried down to fascia. Once again, we noticed umbilical hernia sac. We removed the skin from umbilical hernia sac and then we noticed incarcerated omentum that carefull y was removed from the rest of the adhesions of her hernia sac and then reduced carefully after full inspection. The hernia sac was removed. This allowed us to an open the incision a little bit more. I put a Wilner trocar. Pneumoperitoneum was obtained. After that, we started diagnostic laparoscop y. Just to start with, we noticed an inflammatory mass in the area of the epigastric region, where t he CAT scan pointed out the etiology of her pain. This inflammatory mass was coming from the omentum attached to the falciform ligament. The etiology of that is unknown. So, we are going to remove ev erything in situ. At that moment, I put in 2 more trocars, that will allow me to evaluate the abdome n, so 2 more 5 mm trocars were put in the abdomen. We did run the small bowel. Small bowel with no masses seen. In the area of the pelvis, no masses seen. The appendix was in the mid abdomen right b etween the mid and right upper quadrant. Since the patient is having pain in that area, the appendix looks erythematosus with asymmetrical in shape and color, and it does not look normal, so because it looks abnormal we proceeded then with the appendectomy too. So, we went first to the area of the ma in problem which was the area of the epigastric area. We noticed the patient to have twisted omentum and that twisted omentum was attached to the falciform ligament. Separation between them was diffic ult. I am not sure there is a tumor in that area, so I went inside to remove it with gross negative margins. We did that with the help of a LigaSure device, to make sure we intestines, to ma ke sure we are not there. We went with gross negative margins. We removed the necrotic tissue prese nt. Some of the falciform ligament come also with the specimen. Specimen was put in an EndoCatch an d removed out of abdominal cavity and sent for pathologic evaluation. Then, we went to the area of t he appendix. We created a window in the base of the appendix, transected that with an Endo OLIVIA 45 mm 3.5 and the mesoappendix with an Endo OLIVIA 45 mm 2.5. Appendix removed from abdominal cavity using a n EndoCatch through umbilical incision. We tried to separate both instruments as much as we can. At that moment, we looked at the area of the stomach, soft and compressible. Liver with no extralumina l masses. Once again, large bowel with no masses seen. The area near the duodenum with no masses se en either. At that moment, then I checked the area of the omentectomy, looked intact. I checked the area of the appendix, looked intact. We proceeded to remove the trocars under direct vision. Defla rocio pneumoperitoneum. Closed the fascia with #1 Vicryl and closed the umbilical hernia with #1 Vicry l. Irrigated the subcutaneous tissue, closed that with 3-0 chromic and skin in subcuticular fashion with 3-0 chromic and Steri-Strips on top. Sponge count and instrument counts were correct. The jc ent tolerated the procedure well. The patient was sent to recovery in stable condition. JOSEP/SANTA Voice ID: [id number] Report ID: [id number]
== END 2017-12-10 15:07 | disposition home or self-care (01) ==
LOC: OR 08:31
PROVIDERS: ATTEND Surgery
PROC: 0DTJ4ZZ Resection of Appendix, Percutaneous Endoscopic Approach (ICD-10-PCS; 2017-12-10)
PROC: 0DBU4ZZ Excision of Omentum, Percutaneous Endoscopic Approach (ICD-10-PCS; 2017-12-10)
PROC: 0WQF0ZZ Repair Abdominal Wall, Open Approach (ICD-10-PCS; principal; 2017-12-10 09:45)
DX: R19.09 Other intra-abdominal and pelvic swelling, mass and lump (principal); K42.0 Umbilical hernia with obstruction, without gangrene; K37 Unspecified appendicitis; E07.9 Disorder of thyroid, unspecified; Z88.2 Allergy status to sulfonamides; Z90.710 Acquired absence of both cervix and uterus; Z80.3 Family history of malignant neoplasm of breast; Z80.0 Family history of malignant neoplasm of digestive organs; Z80.7 Family history of other malignant neoplasms of lymphoid, hematopoietic and related tissues; Z83.3 Family history of diabetes mellitus; Z82.49 Family history of ischemic heart disease and other diseases of the circulatory system
CPT/HCPCS: 36415; 71046; 80048; 85025; 88302; 88304; 88305; 93005; J0690; J2175; J2250; J2405; J2550; J2704

== ENCOUNTER 2018-05-22 10:36 | Emergency (ER) | payer OTHER ==
--- OUTSIDE RECORDS SUMMARY | 2018-05-22 10:38 | XMS REPORT | Clinical Summary ---
:1975 Author Organization [facility] [employer] Address [address] [place] [address] Care Team Providers Name Role Phone Otto Murrell MD Primary Care Provider Allergies Active Allergy Reactions Severity Noted Date Comments Sulfa (Sulfonamide Antibiotics) 05/21/2018 Medications No known medications Active Problems Not on file Family History Medical History Relation Name Comments Cancer Father Diabetes Father Breast cancer Mother Liver cancer Mother Lung disease Mother Relation Name Status Comments Father Mother Social History Tobacco Use Types Packs/Day Years Used Date Never Smoker Smokeless Tobacco: Never Used Alcohol Use Drinks/Week oz/Week Comments No Alcohol Habits Answer Date Recorded How often do you have a drink containing alcohol? Never 05/21/2018 How many drinks containing alcohol do you have on a typical Not asked day when you are drinking? How often do you have six or more drinks on one occasion? Not asked Sex Assigned at Date Recorded Not on file Job Start Date Occupation Industry Not on file Not on file Not on file Travel History Travel Start Travel End No recent travel history available. Last Filed Vital Signs Not on file Plan of Treatment Health Maintenance Due Date Last Done Comments CERVICAL CANCER SCREENING 02/13/1997 INFLUENZA VACCINE 10/29/2017 Results Not on fileafter 05/21/2017 Insurance Payer Benefit Plan / Group Subscriber ID Type Phone Address CIGNA CIGNA OPEN ACCESS/NETWORK xxxxxxxxxxx HMO AETNA AETNA HMO,POS,EPO, MC/EC xxxxxxxxx HMO (Work) [id number] Advance Directives Patient has advance care planning documents on file. For more information, please contact:Davy Godinez[address] [place] [address]
--- OUTSIDE RECORDS SUMMARY | 2018-05-22 10:38 | XMS REPORT ---
[...] End Status Dosage System Date Date Medrol [facility] [id number] 4 MG Orally as October 19, Active as directed 2017 directed Ibuprofen ND 0 Active not defined Naprosyn ND 46313742725 500 MG Orally October 19September Active 1 tablet every 12 hrs 2017 29, with food 2018 or milk as needed Levothyroxine [facility] [address]-70 Active not Sodium defined Results No Known Results Summary Purpose eClinicalWorks Submission
[2018-05-22 11:27] LABS: Absolute Lymphocytes (CBC) 1.3 K/uL (0.7-4.9); Absolute Monocytes 0.5 K/uL (0.1-1.3); Absolute Neutrophil 3.6 K/uL (1.8-8.0); Basophils % 0.7 % (0-1.3); Eosinophils % 0.5 % (0-4.4); Hematocrit 46.2 % (36.0-45.0); Lymphocytes % 23.8 % (15.3-44.8); MPV 8.3 fL (7.6-11.3); Monocytes % 9.4 % (3.3-12.3); RBC Red Blood Cell Count 5.26 M/uL (3.86-4.86)
[2018-05-22] MEDS ORDERED: NA CHLORIDE 0.9% 1,000 ML ONE (11:35)
[2018-05-22] MEDS ORDERED: PANTOPRAZOLE 40 MG INJ ONE (11:35)
[2018-05-22] MEDS ORDERED: ONDANSETRON 4 MG/2 ML VIAL ONE ×2 (11:35→13:01)
[2018-05-22 11:45] LABS: Albumin 4.4 g/dL (3.4-5.0); Bilirubin Direct 0.2 mg/dL (0-0.2); Bilirubin Total 0.6 mg/dL (0.2-1.0); Potassium 3.8 mmol/L (3.5-5.1)
[2018-05-22 11:49] LABS: Protime INR 1.15
[2018-05-22 12:08] LABS: Urine Bacteria <20 /HPF (<20); Urine Coarse Granular Casts 0-5 /LPF (NONE SEEN); Urine Culture Reflex Order NOT NEEDED; Urine RBC NONE SEEN /HPF (NONE SEEN)
--- NOTE | 2018-05-22 12:13 | RAD REPORT ---
EXAM DESCRIPTION: CT - Abdomen Pelvis W Contrast - 05/22/2018 11:58 am CLINICAL HISTORY: Abdominal pain vomiting and diarrhea COMPARISON: May 2018 TECHNIQUE: Computed axial tomography of the abdomen pelvis was obtained. 100 cc Isovue-300 was admin istered intravenously. Oral contrast was not requested which limits evaluation of bowel. All CT scans are performed using dose optimization technique as appropriate and may include automated exposure control or mA/KV adjustment according to patient size. FINDINGS: Hepatic cyst unchanged. Spleen, pancreas, adrenal and kidneys appear unremarkable. There is no evidence of diverticulitis. Wall of the right colon and proximal transverse colon appears mildly thickened Hysterectomy. Small amount of free fluid. 16 millimeter irregularly shaped right ovarian follicle lik missy has recently involuted IMPRESSION: Mild thickening of the wall of the proximal transverse and right colon probably indicate s a mild colitis.
[2018-05-22 12:45] LABS: Urine Blood 1+ (NEG); Urine Glucose NEGATIVE (NEG); Urine Protein 2+ (NEG)
[2018-05-22] MEDS ORDERED: Levofloxacin500mg IV 500 MG/100 ML BAG IV ONE (13:00)
[2018-05-22] MEDS ORDERED: METRONIDAZOLE 500mg IVPB 500 MG/100 ML BAG IV ONE (13:00)
--- NOTE | 2018-05-22 13:18 | RAD REPORT ---
EXAM DESCRIPTION: RAD - Chest Single View - 05/22/2018 12:59 pm CLINICAL HISTORY: Abdominal pain, weight loss COMPARISON: November 2017 TECHNIQUE: AP portable chest image was obtained 1257 hours . FINDINGS: Lungs are clear. Heart and vasculature are normal. No measurable pleural effusion and no p neumothorax. No acute bony abnormality seen. No acute aortic findings suspected. IMPRESSION: No acute cardiopulmonary process. No significant interval change.
--- NOTE | 2018-05-22 13:54 | ER ---
Nurse's Notes [facility] Name: Tracy Alcaraz Age: 43 yrs Sex: Female : 1975 Arrival Date: 05/22/2018 Time: 10:38 Bed 5 Private MD: Otto Murrell Diagnosis: Transverse colitis, abdominal pain Presentation: 05/22 10:49 Presenting complaint: Patient states: N/V/D and abd pain that began 4 weeks ago. Pt ss also reports she has lost 18 lbs in the past three weeks. Transition of care: patient was not received from another setting of care. Onset of symptoms was March 2018. Risk Assessment: Do you want to hurt yourself or someone else? Patient reports no desire to harm self or others. Initial Sepsis Screen: Does the patient meet any 2 criteria? HR > 90 bpm. Does the patient have a suspected source of infection? No. Patient's initial sepsis screen is negative. Care prior to arrival: None. 10:49 Method Of Arrival: Ambulatory ss 10:49 Acuity: MATHEW 2 ss Triage Assessment: 11:00 General: Appears in no apparent distress. uncomfortable, slender, Behavior is calm, bp cooperative, appropriate for age. GI: Reports diarrhea, nausea, vomiting. 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 - Social history:: Smoking status: Patient/guardian denies using tobacco. - Ebola Screening: : Patient denies exposure to infectious person Patient denies travel to an Ebola-affected area in the 21 days before illness onset. Screenin:40 Abuse screen: Denies threats or abuse. Denies injuries from another. Nutritional bp screening: No deficits noted. Tuberculosis screening: No symptoms or risk factors identified. Fall Risk None identified. Assessment: 10:50 General: Appears in no apparent distress. comfortable, slender, Behavior is bp cooperative, appropriate for age, anxious. Pain: Complains of pain in abdomen diffusely. Neuro: Level of Consciousness is awake, alert, obeys commands, Oriented to person, place, time, situation, Appropriate for age. Cardiovascular: No deficits noted. Respiratory: Airway is patent Respiratory effort is even, unlabored, Respiratory pattern is regular, symmetrical. GI: Abdomen is non-distended, Bowel sounds present X 4 quads. Abd is soft X 4 quads. : No signs and/or symptoms were reported regarding the genitourinary system. EENT: No deficits noted. Derm: No deficits noted. Musculoskeletal: Circulation, motion, and sensation intact. Range of motion: intact in all extremities. 12:00 Reassessment: CT COMPLETED, RESULTS PENDING. bp 13:00 Reassessment: PER PROVIDER, COLITIS NOTED ON CT. ABX INFUSING. bp 13:48 Reassessment: REPORT FOR TRANSFER TO [facility] COMPLETED, TRANSPORT PENDING. bp 14:46 Reassessment: EMS AT B/S FOR TRANSPORT. bp Vital Signs: 10:51 BP 130 / 99; Pulse 126; Resp 16; Temp 99.9(O); Pulse Ox 98% on R/A; Weight 57.15 kg; ss Height 5 ft. 2 in. (157.48 cm); Pain 7/10; 11:31 BP 122 / 93; Pulse 95; Resp 14; Pulse Ox 99% ; aj1 13:39 BP 121 / 86; Pulse 93; Resp 14; Pulse Ox 100% ; bp 10:51 Body Mass Index 23.05 (57.15 kg, 157.48 cm) ED Course: 10:38 Patient arrived in ED. as 10:38 Fidel Arzola MD is Attending Physician. kdr 10:39 Otto Murrell MD is Private Physician. as 10:51 Triage completed. ss 10:51 Arm band placed on right wrist. ss 11:02 Ashley Augustin, RN is Primary Nurse. aj1 11:36 Initial lab(s) drawn, by pr, sent to lab. Urine collected: clean catch specimen, jb1 cloudy, linda colored. Inserted saline lock: 22 gauge in right antecubital area, using aseptic technique. Blood collected. 11:37 Otto Delong, ERLIN is Primary Nurse. bp 11:40 Patient has correct armband on for positive identification. Bed in low position. Call bp light in reach. Side rails up X2. Adult w/ patient. 12:57 X-ray completed. Portable x-ray completed in exam room. Patient tolerated procedure jw2 well. 14:47 No provider procedures requiring assistance completed. Patient transferred, IV remains bp in place. Administered Medications: 11:28 Drug: NS 0.9% 1000 ml Route: IV; Rate: 1 bolus; Site: right antecubital; aj1 14:50 Follow up: IV Status: Completed infusion; IV Intake: 1000ml bp 11:29 Drug: Zofran 4 mg Route: IVP; Site: right antecubital; aj1 14:51 Follow up: Response: Nausea is decreased bp 11:30 Drug: ProTONIX 40 mg Route: IVP; Site: right antecubital; aj1 14:52 Follow up: Response: No adverse reaction; Nausea is decreased bp 12:45 Drug: LevaQUIN 500 mg Volume: 100 ml; Route: IVPB; Infused Over: 60 mins; Site: right bp antecubital; 14:49 Follow up: IV Status: Completed infusion; IV Intake: 100ml bp 13:57 Drug: morphine 4 mg Route: IVP; Site: right antecubital; bp 14:49 Follow up: Response: Pain is decreased bp 14:18 Drug: Flagyl 500 mg Volume: 100 ml; Route: IVPB; Rate: 200 ml/hr; Infused Over: 30 bp mins; Site: right antecubital; 14:50 Follow up: IV Status: Completed infusion; IV Intake: 100ml bp Intake: 14:49 IV: 100ml; Total: 100ml. bp 14:50 IV: 100ml; Total: 200ml. bp 14:50 IV: 1000ml; Total: 1200ml. bp Outcome: 13:54 ER care complete, transfer ordered by . kdr 14:47 Transferred by ground EMS to [facility], Transfer form completed. bp 14:47 Condition: stable 14:47 Instructed on the need for transfer. 14:53 Patient left the ED. bp Signatures: Colton Johns jb1 Ashley Augustin RN RN aj1 Fidel Arzola MD MD kdr Martinez, Amelia as Smirch, Shelby, RN RN ss Wailes, Jenni jw2 Otto Delong RN RN bp
--- NOTE | 2018-05-22 13:55 | EDPHYS ---
Physician Documentation [facility] Name: Tracy Alcaraz Age: 43 yrs Sex: Female : 1975 Arrival Date: 05/22/2018 Time: 10:38 Bed 5 Private MD: Otto Murrell ED Physician Fidel Arzola HPI: 05/22 13:16 This 43 yrs old Female presents to ER via Ambulatory with complaints of kdr Vomiting/Diarrhea. 13:16 The patient presents to the emergency department with nausea, that is severe, vomiting, kdr that is intermittent, With food or drink, described as clear fluid, undigested food, diarrhea, that is intermittent, With food, abdominal pain, of the epigastric area, right upper quadrant, left upper quadrant and right lower quadrant. Onset: The symptoms/episode began/occurred gradually, 3 week(s) ago. Possible causes: unknown. The symptoms are aggravated by movement, food , The symptoms are alleviated by. 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 - Social history:: Smoking status: Patient/guardian denies using tobacco. - Ebola Screening: : Patient denies exposure to infectious person Patient denies travel to an Ebola-affected area in the 21 days before illness onset. ROS: 13:31 Constitutional: Negative for fever, chills, and weight loss, Eyes: Negative for injury, kdr pain, redness, and discharge, ENT: Negative for injury, pain, and discharge, Neck: Negative for injury, pain, and swelling, Cardiovascular: Negative for chest pain, palpitations, and edema, Respiratory: Negative for shortness of breath, cough, wheezing, and pleuritic chest pain, Back: Negative for injury and pain, : Negative for injury, bleeding, discharge, and swelling, MS/Extremity: Negative for injury and deformity, Skin: Negative for injury, rash, and discoloration, Neuro: Negative for headache, weakness, numbness, tingling, and seizure activity. Psych: Negative for depression, anxiety, suicide ideation, homicidal ideation, and hallucinations, Allergy/Immunology: Negative for hives, rash, and allergies, Endocrine: Negative for neck swelling, polydipsia, polyuria, polyphagia, and marked weight changes, Hematologic/Lymphatic: Negative for swollen nodes, abnormal bleeding, and unusual bruising. 13:31 Abdomen/GI: Positive for abdominal pain, nausea, vomiting, and diarrhea, abdominal cramps, anorexia, Negative for constipation, dysphagia, hematemesis, black/tarry stool, rectal pain, rectal bleeding, bowel incontinence. Exam: 13:31 Constitutional: This is a well developed, well nourished patient who is awake, alert, kdr and in no acute distress. Head/Face: Normocephalic, atraumatic. Eyes: Pupils equal round and reactive to light, extra-ocular motions intact. Lids and lashes normal. Conjunctiva and sclera are non-icteric and not injected. Cornea within normal limits. Periorbital areas with no swelling, redness, or edema. Neck: Trachea midline, no thyromegaly or masses palpated, and no cervical lymphadenopathy. Supple, full range of motion without nuchal rigidity, or vertebral point tenderness. No Meningismus. Chest/axilla: Normal chest wall appearance and motion. Nontender with no deformity. No lesions are appreciated. Respiratory: Lungs have equal breath sounds bilaterally, clear to auscultation and percussion. No rales, rhonchi or wheezes noted. No increased work of breathing, no retractions or nasal flaring. Back: No spinal tenderness. No costovertebral tenderness. Full range of motion. Skin: Warm, dry with normal turgor. Normal color with no rashes, no lesions, and no evidence of cellulitis. MS/ Extremity: Pulses equal, no cyanosis. Neurovascular intact. Full, normal range of motion. Neuro: Awake and alert, GCS 15, oriented to person, place, time, and situation. Cranial nerves II-XII grossly intact. Motor strength 5/5 in all extremities. Sensory grossly intact. Cerebellar exam normal. Normal gait. Psych: Awake, alert, with orientation to person, place and time. Behavior, mood, and affect are within normal limits. 13:31 Cardiovascular: Rate: tachycardic, Rhythm: regular. 13:31 Abdomen/GI: Inspection: abdomen appears normal, Bowel sounds: diminished, in all quadrants, Palpation: soft, mild abdominal tenderness, in the epigastric area, right upper quadrant, left upper quadrant and right lower quadrant, mass, is not appreciated, rebound tenderness, is not appreciated, voluntary guarding, is not appreciated, involuntary guarding, is not appreciated. Vital Signs: 10:51 BP 130 / 99; Pulse 126; Resp 16; Temp 99.9(O); Pulse Ox 98% on R/A; Weight 57.15 kg; ss Height 5 ft. 2 in. (157.48 cm); Pain 7/10; 11:31 BP 122 / 93; Pulse 95; Resp 14; Pulse Ox 99% ; aj1 13:39 BP 121 / 86; Pulse 93; Resp 14; Pulse Ox 100% ; bp 10:51 Body Mass Index 23.05 (57.15 kg, 157.48 cm) ss MDM: 13:31 Data reviewed: vital signs, nurses notes, lab test result(s), radiologic studies. kdr Counseling: I had a detailed discussion with the patient and/or guardian regarding: the historical points, exam findings, and any diagnostic results supporting the discharge/admit diagnosis, lab results, radiology results, the need to transfer to another facility. ED course: D/w Dr. Janneth Sanchez at [facility]. The patient asked to be transferred to [facility]. Dr. Sanchez accepted in transfer after discussion of PMH, Exam and lab/radiology findings. The patient was stable in the ED and improved with the interventions given. She has continued to refuse pain medication. She had no other c/o or concerns.. 13:54 Patient medically screened. [facility] 05/22 10:43 Order name: Basic Metabolic Panel [facility] 05/22 10:43 Order name: CBC with Diff [facility] 05/22 10:43 Order name: Creatinine for Radiology [facility] 05/22 10:43 Order name: Hepatic Function [facility] 05/22 10:43 Order name: Lipase [facility] 05/22 11:15 Order name: Troponin (emerg Dept Use Only) [facility] 05/22 11:15 Order name: PT-INR [facility] 05/22 11:28 Order name: Urine Microscopic Only [facility] 05/22 11:33 Order name: CBC with Automated Diff; Complete Time: 12:00 EDTX 05/22 11:45 Order name: Basic Metabolic Panel; Complete Time: 12:00 EDTX 05/22 11:45 Order name: Liver (Hepatic) Function; Complete Time: 12:00 EDMS 05/22 11:45 Order name: Lipase; Complete Time: 12:00 EDMS 05/22 11:47 Order name: Creatinine (Radiology Only); Complete Time: 12:00 EDMS 05/22 11:51 Order name: Urine Dipstick--Ancillary (enter results) 05/22 11:15 Order name: CXR XRAY [facility] 05/22 11:15 Order name: CT Abd/Pelvis - W/Contrast [facility] 05/22 11:51 Order name: Urine --Ancillary (enter results) 05/22 11:52 Order name: Protime (+INR); Complete Time: 12:00 EDMS 05/22 12:03 Order name: Troponin (Emerg Dept Use Only); Complete Time: 12:20 EDMS 05/22 12:09 Order name: Urine Microscopic Only; Complete Time: 12:20 EDMS 05/22 12:14 Order name: CT; Complete Time: 12:20 EDMS 05/22 12:46 Order name: Urine --Ancillary; Complete Time: 13:54 EDMS 05/22 12:46 Order name: Urine Dipstick-Ancillary; Complete Time: 13:54 EDMS 05/22 13:19 Order name: RAD; Complete Time: 13:54 EDTX 05/22 10:43 Order name: IV Saline Lock; Complete Time: 11:18 [facility] 05/22 10:43 Order name: Labs collected and sent; Complete Time: 11:18 [facility] 05/22 11:15 Order name: EKG - Nurse/Tech; Complete Time: 11:17 kdr Administered Medications: 11:28 Drug: NS 0.9% 1000 ml Route: IV; Rate: 1 bolus; Site: right antecubital; aj1 14:50 Follow up: IV Status: Completed infusion; IV Intake: 1000ml bp 11:29 Drug: Zofran 4 mg Route: IVP; Site: right antecubital; aj1 14:51 Follow up: Response: Nausea is decreased bp 11:30 Drug: ProTONIX 40 mg Route: IVP; Site: right antecubital; aj1 14:52 Follow up: Response: No adverse reaction; Nausea is decreased bp 12:45 Drug: LevaQUIN 500 mg Volume: 100 ml; Route: IVPB; Infused Over: 60 mins; Site: right bp antecubital; 14:49 Follow up: IV Status: Completed infusion; IV Intake: 100ml bp 13:57 Drug: morphine 4 mg Route: IVP; Site: right antecubital; bp 14:49 Follow up: Response: Pain is decreased bp 14:18 Drug: Flagyl 500 mg Volume: 100 ml; Route: IVPB; Rate: 200 ml/hr; Infused Over: 30 bp mins; Site: right antecubital; 14:50 Follow up: IV Status: Completed infusion; IV Intake: 100ml bp Disposition: 05/22/18 13:54 Transfer ordered to Other Acute Care Facility. Diagnosis is Transverse colitis, abdominal pain. - Reason for transfer: Higher level of care. - Accepting physician is Dr. Adolfo Sanchez. - Condition is Fair. - Problem is an ongoing problem. - Symptoms have improved. Signatures: Dispatcher [employer] EDAshley Fallon RN RN aj1 Fidel Arzola MD MD kdr Irene Lopez RN RN Otto Delong RN RN bp Corrections: (The following items were deleted from the chart) 14:53 13:54 05/22/2018 13:54 Transfer ordered to Other Acute Care Facility. Diagnosis is bp Transverse colitis, abdominal pain. Reason for transfer: Higher level of care. Accepting physician is Dr. Adolfo Sanchez. Condition is Fair. Problem is an ongoing problem. Symptoms have improved. kdr
[2018-05-22] MEDS ORDERED: MORPHINE 2 MG/ML SYR ONE (14:06)
[2018-05-22 15:54] VITALS: TEMP 99.9
[2018-05-22 15:56] VITALS: BP 121/86; O2SAT 100
== END 2018-05-22 14:53 ==
LOC: ER 10:36
DX: K52.89 Other specified noninfective gastroenteritis and colitis (principal); R10.9 Unspecified abdominal pain; Z88.2 Allergy status to sulfonamides
CPT/HCPCS: 36415; 71045; 74177; 80048; 80076; 81003; 81015; 81025; 83690; 84484; 85025; 85610; 96361; 96365; 96366; 96368; 96375; 99285; C9113; J2270; J2405; J7030; Q9967

== ENCOUNTER → 2023-06-11 | Emergency (ER) | payer OTHER ==
--- NOTE | 2023-06-11 19:36 | RAD REPORT ---
EXAM DESCRIPTION: WEI - GENA - 06/11/2023 7:02 pm CLINICAL HISTORY: Swelling;Pain COMPARISON: No comparisons TECHNIQUE: Left hand, 3 views. FINDINGS: No fracture is identified. There is no dislocation or periosteal reaction noted. Joint alignment is maintained. No foreign body or soft tissue gas. Soft tissue swelling and irregularity along the fourth digit. IMPRESSION: Soft tissue swelling about the fourth digit, without acute osseus abnormality.
--- NOTE | 2023-06-11 20:13 | ER ---
Nurse's Notes [facility] Name: Tracy Alcaraz Age: 48 yrs Sex: Female : 1975 Arrival Date: 06/11/2023 Time: 17:56 Bed IW3 Private MD: Diagnosis: Presentation: 06/10 17:58 Chief complaint: Patient states: Finger injury with laceration repair in [place]. Site ll1 is red, swollen, painful, black colored blisters noted started today. On Keflex and doxycycline. Coronavirus screen: Client denies travel out of the [place] in the last 14 days. At this time, the client does not indicate any symptoms associated with coronavirus-19. Ebola Screen: Patient denies travel to an Ebola-affected area in the 21 days before illness onset. Initial Sepsis Screen: Does the patient meet any 2 criteria? No. Patient's initial sepsis screen is negative. Does the patient have a suspected source of infection? No. Patient's initial sepsis screen is negative. Risk Assessment: Do you want to hurt yourself or someone else? Patient reports no desire to harm self or others. 17:58 Method Of Arrival: Ambulatory ll1 18:09 Onset of symptoms was June 11, 2023. iw 18:09 Acuity: MATHEW 2 iw Triage Assessment: 18:10 General: Appears uncomfortable, Behavior is calm, cooperative, appropriate for age. iw Pain: Complains of pain in left hand Quality of pain is described as aching, throbbing. Neuro: No deficits noted. Cardiovascular: No deficits noted. Musculoskeletal: Reports pain in left hand. Injury Description: s/p laceration repair. Historical: - Allergies: 17:58 Sulfa (Sulfonamide Antibiotics); ll1 - PMHx: 17:58 GERD; Hypothyroidism; ibs; ll1 - PSHx: 17:58 Appendectomy; hysterectomy; ll1 - Immunization history:: Adult Immunizations up to date. Assessment: 20:12 Reassessment: Pt called back from [facility]arine, discovered gone at 1934. jb4 ED Course: 17:57 Patient arrived in ED. rg4 17:59 Arm band placed on. ll1 18:04 Michel Renner PA is PHCP. cp 18:04 Wilfrido Santos MD is Attending Physician. cp 18:10 Triage completed. iw 19:04 XRAY Hand LEFT 3 View In Process Unspecified. EDMS Administered Medications: No medications were administered Outcome: 20:12 Eloped from waiting room, after seeing physician Time discovered patient gone: May jb4 2023 at 19:34 20:12 Patient left the ED. jb4 Signatures: Dispatcher [employer] EDMS Estela Bergman RN RN iw Michel Renner PA PA cp Garcia, Rubi rg4 Matthew Rowell RN RN jb4 Aleah Sands RN RN ll1 Corrections: (The following items were deleted from the chart) 18:10 17:58 Chief complaint: Patient states: Finger injury with laceration repair in [place]. Site is red, swollen, painful now ll1
--- NOTE | 2023-06-11 20:13 | EDPHYS ---
Physician Documentation [facility] Name: Tracy Alcaraz Age: 48 yrs Sex: Female : 1975 Arrival Date: 06/11/2023 Time: 17:56 Bed IW3 Private MD: ED Physician Wilfrido Santos HPI: 06/10 18:10 This 48 yrs old Female presents to ER via Ambulatory with complaints of Finger Injury. cp 18:10 The patient or guardian reports injury, a laceration, irregular, dirty. The complaints cp affect the left fourth finger. 18:10 Onset: The symptoms/episode began/occurred yesterday. cp 18:10 Context: Patient is a 48-year-old female who presents to the emergency department with cp concern for swelling increased pain to left fourth finger and left hand. Patient reports she sustained an injury that she describes as a degloving injury to her left fourth finger yesterday while on a boat in [place] subsequently went to an emergency department where the wound was sutured closed and patient was placed on Keflex and doxycycline antibiotics. Patient reports since today the finger has become more swollen and also her left hand. Historical: - Allergies: 17:58 Sulfa (Sulfonamide Antibiotics); ll1 - PMHx: 17:58 GERD; Hypothyroidism; ibs; ll1 - PSHx: 17:58 Appendectomy; hysterectomy; ll1 - Immunization history:: Adult Immunizations up to date. ROS: 18:15 Constitutional: Negative for body aches, chills, fever, poor PO intake, cp 18:15 MS/extremity: Positive for pain, paresthesias, swelling, tenderness, of the left fourth finger, 18:15 All other systems are negative, cp Exam: 18:20 Constitutional: The patient appears in no acute distress, alert, awake, non-toxic, well cp developed, well nourished, uncomfortable, 18:20 Head/Face: Normocephalic, atraumatic. cp 18:20 Chest/axilla: Inspection: normal, 18:20 Respiratory: the patient does not display signs of respiratory distress, Respirations: normal, no use of accessory muscles, no retractions, labored breathing, is not present, 18:20 Musculoskeletal/extremity: Extremities: noted in the left hand: Shows left fourth finger with proximal phalanx laceration repair with sutures in place. There is marked swelling of the digit with large blood-filled bullae noted lateral sides of the wound, mild swelling extending proximally onto the dorsum of the hand with mild erythema. Patient does have sensation to light touch throughout with good cap refill, 18:20 Neuro: Orientation: to person, place \T\ time. Mentation: is normal, MDM: 18:04 Patient medically screened. cp 06/10 18:13 Order name: XRAY Hand LEFT 3 View cp 06/10 18:13 Order name: Accucheck cp 06/10 18:13 Order name: Cardiac monitoring cp 06/10 18:13 Order name: EKG - Nurse/Tech cp 06/10 18:13 Order name: IV Saline Lock - Large Bore cp 06/10 18:13 Order name: Labs collected and sent cp 06/10 18:13 Order name: O2 Per Protocol cp 06/10 18:13 Order name: O2 Sat Monitoring cp 06/10 18:13 Order name: Vital Signs cp Administered Medications: No medications were administered Disposition: 06/11 09:22 Co-signature as Attending Physician, Wilfrido Santos MD I reviewed the patient's care rt provided by the Advanced Practice Provider and agree with the diagnosis and treatment plan. Disposition Summary: 06/11/23 20:12 Eloped Notes: Disposition: after being seen by provider jb4 Reason: (see nurse's notes) jb4 Signatures: Dispatcher [employer] EDMS Michel Renner PA PA cp Bryson, James, RN RN jb4 Aleah Sands RN RN ll1 Wilfrido Santos MD MD rt Corrections: (The following items were deleted from the chart) 17:19 17:18 MS/extremity: Positive for pain, paresthesias, swelling, tenderness, of the left cp fourth finger, cp 17:19 17:18 Constitutional: Negative for body aches, chills, fever, poor PO intake, cp cp
== END | disposition left against medical advice (07) ==
LOC: ER 17:56
DX: M79.642 Pain in left hand (principal); Z88.2 Allergy status to sulfonamides